=== PATIENT | female | born 1965 | race Caucasian/White ===

== ENCOUNTER 2017-05-30 15:15 | Emergency (ER) | payer OTHER ==
[~2017-05-30] VITALS: Ht 165.1 cm; Wt 110.4 kg
[~2017-05-30 15:15] MED LIST: ATROVENT H200 INHALA IH; CLONAZEPAM0.5 MG PO; COLACE100 MG PO; COUMADIN5 MG PO; CYMBALTA60 MG PO; DESYREL100 MG PO; FLEXERIL10 MG PO; GABAPENTIN600 MG PO; GEODON40 MG PO; HEARTBURN RELIE75 MG; KLONOPIN0.5 M1 PO; KLONOPIN0.5 MG PO; LO-DOSE ASPIRIN81 M2 PO; LOVENOX100 MG/1 M SC; METHADONE10 MG PO; MS CONTIN,ORAMO15 M1 PO; NEURONTIN100 MG; NEURONTIN400 MG PO; NEURONTIN600 MG PO; NEXIUM20 MG PO; NEXIUM40 MG PO; OXAYDO5 MG PO; PAMPRIN MAX1 TABLET PO; PERCOCET 10/1 TABLET PO; PRINIVIL5 MG PO; PROTONIX40 M1 PO; RITALIN5 MG; TOPAMAX100 MG PO; TOPAMAX200 MG PO; TRAZODONE HCL150 MG PO; TRAZODONE HCL50 MG; ULTRAM ER100 MG PO; VITAMIN D31000 UNIT PO; VITAMIN D3400 UNIT PO; VOLTAREN75 MG PO; WELLBUTRIN100 MG PO; ZANTAC150 MG PO; ZESTRIL40 MG PO; ZOLOFT100 MG PO
[2017-05-30 15:18] VITALS: BP 164/100
[2017-05-30] MEDS ORDERED: KEFLEX500 MG PO (18:36)
== END 2017-05-30 18:43 | disposition home or self-care (01) ==
LOC: EME 15:15
DX: S61.141A Puncture wound with foreign body of right thumb with damage to nail, initial encounter (principal); W45.8XXA Other foreign body or object entering through skin, initial encounter; W22.8XXA Striking against or struck by other objects, initial encounter; Z23 Encounter for immunization; R45.1 Restlessness and agitation; I10 Essential (primary) hypertension; Z79.82 Long term (current) use of aspirin; F17.200 Nicotine dependence, unspecified, uncomplicated
CPT/HCPCS: 73140; 99281; 99283; S0020